=== PATIENT | female | born 1965 | race Caucasian/White ===

== ENCOUNTER → 2018-08-16 10:56 | Outpatient (CLI) | payer OTHER, SELFPAY ==
[2018-08-16 13:08] LABS: Bacteria Urine None Seen; RBC Urine None Seen (0-5/HPF); WBC Urine None Seen (0-5/HPF)
[2018-08-16 13:31] LABS: Appearance Urine UA CLEAR; Bilirubin Urine UA NEGATIVE (NEGATIVE); Color Urine UA YELLOW; Glucose Urine UA NEGATIVE (Normal); Ketones Urine UA NEGATIVE (NEGATIVE); Leukocyte Esterase Urine UA TRACE (NEGATIVE); Nitrite Urine UA Negative (Negative); Occult Blood Urine UA NEGATIVE (Negative); Protein Urine UA NEGATIVE (Negative); Urobilinogen Urine UA 0.2 E.U./dL (0.2)
[2018-08-16 13:33] LABS: Culture Indicated Urine Cult Not Indicated; Urine Comments Microscopic Normal
== END ==
PROVIDERS: PCP Physician Assistant; Visit Provider Nurse Practitioner Family
DX: N39.0 Urinary tract infection, site not specified (principal)
CPT/HCPCS: 81001

== ENCOUNTER → 2021-06-29 14:39 | Outpatient (CLI) | payer OTHER, SELFPAY ==
[2021-06-29 16:36] LABS: COVID19 -Nasal RAPID Negative (Negative)
== END ==
PROVIDERS: PCP Physician Assistant; Visit Provider Nurse Practitioner
DX: J02.9 Acute pharyngitis, unspecified (principal); Z20.822 Contact with and (suspected) exposure to COVID-19
CPT/HCPCS: 87635

== ENCOUNTER → 2021-07-29 16:35 | Outpatient (CLI) | payer OTHER, SELFPAY ==
[2021-07-29 17:39] LABS: COVID19 -Nasal RAPID Negative (Negative)
== END ==
PROVIDERS: PCP Physician Assistant; Visit Provider Physician Assistant
DX: Z20.822 Contact with and (suspected) exposure to COVID-19 (principal)
CPT/HCPCS: 87635

== ENCOUNTER 2025-02-16 16:55 | Emergency (ER) | payer OTHER, SELFPAY ==
[2025-02-16 17:05] VITALS: BP 163/81; PULSE 75; RESP 18; TEMP 36.6; O2SAT 99; BMI 34.3
--- NOTE | 2025-02-16 17:16 | ED.EXTPRO ---
HPI - Extremity Problem <Jocy Gamble PA-C - Last Filed: 02/16/25 19:02> General Chief complaint: Extremity Problem,Nontraumatic Stated complaint: rt leg pain Time Seen by Provider: 02/16/25 17:16 Source: patient Mode of arrival: Ambulatory History of Present Illness HPI Narrative: This is a 59-year-old woman presenting with concern for right calf pain and possible DVT. She states she 1st noticed the pain about a week ago when she was pushing the foot rest portion of a reclining chair down with her legs. She felt a Charley horse type muscular pain she felt in her calf in the back and inside of her calf on the right. She states that this pain seems to be improving over the week but then today she noticed it again shortly before starting to proceed with some outside work. She said today she is noticed the pain is also affecting the back of her knee and up into the back of her thigh a little bit which is new. She thinks it is possible that her calf is more swollen the right than the left but she is unsure. She describes it as an aching type pain. She denies any recent long car rides or periods of immobility, states she is a nonsmoker and has never had a DVT. Denies any other complaints or concerns. Related Data Home Medications Medication Instructions Recorded Confirmed [VITAMIN C] 1,000 mg PO QDAY ##0 12/13/16 09/08/23 [VITAMIN D3] 1,000 iu PO QDAY ##0 12/13/16 09/08/23 acetaminophen 500 mg tablet 500 mg PO Q4HP PRN ##0 12/13/16 09/08/23 (Tylenol Extra Strength) Previous Rx's Medication Instructions Recorded chlorhexidine gluconate 0.12 % 15 ml mucous membrane BID #15 mL 04/29/19 mouthwash fluticasone propionate 50 1 spray intranasal Q12H #16 grams 09/08/23 mcg/actuation nasal spray,suspension (Flonase Allergy Relief) Allergies Allergy/AdvReac Type Severity Reaction Status Date / Time aspirin [ASPIRIN] Allergy Intermediate TINNITIS Verified 09/08/23 13:45 ibuprofen [IBUPROFEN] Allergy Intermediate VOMITING Verified 09/08/23 13:45 tetracycline [TETRACYCLINE] Allergy Mild DIARRHEA Verified 09/08/23 13:45 AND NAUSEA DECONGESTANT Allergy Mild (ANTIHISTAMINE) Uncoded 10/19/23 13:45 FAST HEART RATE Review of Systems <Jocy Gamble PA-C - Last Filed: 02/16/25 19:02> Review of Systems Narrative: See HPI Patient History <Jocy Gamble PA-C - Last Filed: 02/16/25 19:02> Social History Smoking Status: Never smoker Smoking Status: Never smoker Exam <Jocy Gamble PA-C - Last Filed: 02/16/25 19:02> Narrative Exam Narrative: GENERAL: [59] year old patient appears stated age. Well-developed patient, in mild distress. HEAD: Atraumatic. Normocephalic. EYES: Pupils equal round and reactive. Extraocular motions intact. No scleral icterus. No injection or drainage. ENT: Nose without bleeding, purulent drainage. Airway patent. NECK: Trachea midline. Non tender CARDIOVASCULAR: Regular rate and rhythm without murmurs, gallops, or rubs. RESPIRATORY: Clear to auscultation. Breath sounds equal bilaterally. No wheezes, rales, or rhonchi. EXTREMITIES: There is subtle slight enlargement of the right calf medially as compared to the left calf. There is tenderness at the medial right calf, slight tenderness in the posterior mid calf and slight tenderness in the posterior distal thigh. No popliteal fossa tenderness or swelling noted. Range of motion at the ankle is intact with no increased pain. Distal pulses intact. Skin is pink, well perfused, without heat or erythema noted. No other edema or joint tenderness. NEURO: AOx3. SKIN: No rash or erythema of visible areas Initial Vital Signs Initial Vital Signs: Vital Signs Temperature 98 F 02/16/25 17:05 Pulse Rate 75 02/16/25 17:05 Respiratory Rate 18 02/16/25 17:05 Blood Pressure 163/81 H 02/16/25 17:05 Pulse Oximetry 99 02/16/25 17:05 Oxygen Delivery Method Room Air 02/16/25 17:05 <Celena Bergeron DO - Last Filed: 02/17/25 15:37> Initial Vital Signs Initial Vital Signs: Vital Signs Temperature 98 F 02/16/25 17:05 Pulse Rate 75 02/16/25 17:05 Respiratory Rate 18 02/16/25 17:05 Blood Pressure 163/81 H 02/16/25 17:05 Pulse Oximetry 99 02/16/25 17:05 Oxygen Delivery Method Room Air 02/16/25 17:05 Scores <Jocy Gamble PA-C - Last Filed: 02/16/25 19:02> Arti Criteria for DVT Active Cancer (Treatment within 6 months): No Bedridden recently >3 days or major surgery within 4 weeks: No Calf Swelling >3cm compared to other leg: No Collateral (nonvericose) superficial veins present: No Entire leg swollen: No Localized tenderness along the deep vein system: Yes Pitting edema, confined to symtomatic leg: No Paralysis, paresis, or recent plaster immobilization of ext: No Previously documented DVT: No Alternative dx to DVT as likely or more likely: No Arti criteria for DVT: 1 <Celena Bergeron DO - Last Filed: 02/17/25 15:37> Livan' Criteria for DVT Livan' criteria for DVT: 1 Course <Jocy Gamble PA-C - Last Filed: 02/16/25 19:02> Orders Ordered: ED Orders 02/16/25 17:22 US periph venous low extrem rt Stat Vital Signs Vital signs: Vital Signs - 8 hr 02/16/25 17:05 Temperature 98 F Pulse Rate 75 Respiratory Rate 18 Blood Pressure 163/81 H Pulse Oximetry 99 Oxygen Delivery Method Room Air <Celena Bergeron DO - Last Filed: 02/17/25 15:37> Orders Ordered: ED Orders 02/16/25 17:22 US periph venous low extrem rt Stat Vital Signs Vital signs: Vital Signs - 8 hr 02/16/25 17:05 Temperature 98 F Pulse Rate 75 Respiratory Rate 18 Blood Pressure 163/81 H Pulse Oximetry 99 Oxygen Delivery Method Room Air MDM - Extremity (Nontraumatic) <NAIMA Hawk Last Filed: 02/16/25 19:02> Differential Diagnosis Differential diagnosis: Likely deep vein thrombosis of lower extremity and other (Muscle strain, muscle spasm) Imaging Data US - DVT: My Impression: Agree with Radiology interpretation Radiologist's Impression: [address] [address] Ultrasound Report Signed Patient: Mónica Garg MR#: [id number] : 1965 Acct:[id number] Age/Sex: 59 / F Date of Service: 02/16/25 Loc: ED Accession Number: [id number] Procedure: US periph venous low extrem rt Ordering Provider: Jocy Gamble PA-C PROCEDURE: PERIPH VENOUS LOW EXTREM RT INDICATIONS: Calf pain/tenderness 1 wk TECHNIQUE: Real-time imaging, as well as color and pulse Doppler interrogation, were performed of the lower extremity deep veins from the inguinal ligament to the popliteal fossa, with documentation of the visualized calf veins. COMPARISON: None. FINDINGS: The common femoral, femoral, popliteal, and the visualized calf veins are normally compressible, and free of intraluminal thrombus. Color and pulse Doppler demonstrate normal phasic intraluminal flow. There is normal augmentation response to distal compression maneuver. Additional, dedicated ultrasound scanning is performed at the area of clinical concern of the right anterior medial ankle. No focal ultrasound abnormalities are seen within this region. IMPRESSION: No findings of lower extremity deep venous thrombosis. No ultrasound abnormalities can be seen at the site of clinical concern involving the right anterior medial ankle. Dictated by: Rogelio Paiz M.D. on 02/16/2025 at 17:37 Approved by: Rogelio Paiz M.D. on 02/16/2025 at 17:38 [facility] Narrative Medical decision making narrative: This is a 59-year-old woman with no pertinent history presenting with concern for right calf pain and tenderness that she 1st noticed a week ago that returned again/worsened today. Exam is suspicious for a muscle strain however with some posterior calf midline tenderness and 1 risk factor, (obesity) reasonable to obtain an ultrasound to further evaluate for possible DVT. This is obtained today and returned negative. Labs were not obtained. Discussed results with the patient and she is comfortable with the plan of treating as a muscle strain, we discussed rest ice compression elevation, Tylenol, ibuprofen. She is advised to minimize physical activities that cause pain and if it was not improving or if it was worsening seek re-evaluation. Return precautions provided, follow-up plan discussed, all questions answered. Discharge Plan Departure Patient Disposition: Home Clinical Impression: Strain of right calf muscle Activity Restrictions/Additional Instructions: *You have been diagnosed with [calf muscle strain] *What to do: *Please continue to take your regular medications as directed. [ ] New medication prescriptions sent to your pharmacy: [ ] [ ] New medication written as a paper prescription [X ] No new medications given *Please follow up with your primary care provider in 2-3 days, call for an appointment. Let them know you were seen in the Emergency Department and that we ask that you be seen in follow up. We will electronically transmit a record of today's note if your PCP is in our system. You came into the ER today with concern for pain in your calf. An ultrasound was obtained to rule out a DVT (blood clot). This was negative. Your exam is fairly consistent with a muscle strain. As it seems her pain returned when you went back to more intense physical activities today after pre from the pain for most of the week. I recommend rest ice compression and elevation, you may want to consider an Lloyd wrap, Tylenol/acetaminophen and ibuprofen/Advil for pain as needed for the next few days. Gentle stretching as tolerated and you may want to try icing it this evening and see if that helps some with her pain as well. Over the next week you may find it helpful to use topical medications such as Voltaren/diclofenac gel. This is available OTC. If you are finding that your pain is persisting or worsening please make sure you seek re-evaluation. I hope it resolve soon as you feel better. *If you do not have a primary care provider please contact the [facility] Resource line at [phone]. They will ask some questions about your medical history and help get you set up with a doctor in the community. *Return to Emergency Department if you should have any new, worsening or concerning symptoms, such as [fever greater than 101 F, shaking chills, worsening pain, persistent vomiting or other bothersome symptoms] Prescriptions: No Action chlorhexidine gluconate 0.12 % mouthwash 15 ml MM BID Qty: 15 0RF Rx Instructions: rinse mouth for at least 30 secs then spit. fluticasone propionate [Flonase Allergy Relief] 50 mcg/actuation spray,suspension 1 spray intranasal Q12H Qty: 16 0RF Rx Instructions: administer into each nostril [VITAMIN D3] 1,000 iu PO QDAY Qty: 0 [VITAMIN C] 1,000 mg PO QDAY Qty: 0 acetaminophen [Tylenol Extra Strength] 500 MG tablet 500 mg PO Q4HP PRNQty: 0 Referrals: Laila Shirley, MONICA, AGRONOMY SPECIALIST [Primary Care Provider] - Stand Alone Forms: Patient Portal/API/Survey ED Sign-out <Celena Bergeron DO - Last Filed: 02/17/25 15:37> Cosign ED Attending Cosignature Attestation: I was immediately available in the department for consultation.
--- NOTE | 2025-02-16 17:22 | DI.US.S_ITS ---
PROCEDURE: US PERIPH VENOUS LOW EXTREM RT INDICATIONS: Calf pain/tenderness 1 wk TECHNIQUE: Real-time imaging, as well as color and pulse Doppler interrogation, were performed of the lower extremity deep veins from the inguinal ligament to the popliteal fossa, with documentation of the visualized calf veins. COMPARISON: None. FINDINGS: The common femoral, femoral, popliteal, and the visualized calf veins are normally compressible, and free of intraluminal thrombus. Color and pulse Doppler demonstrate normal phasic intraluminal flow. There is normal augmentation response to distal compression maneuver. Additional, dedicated ultrasound scanning is performed at the area of clinical concern of the right anterior medial ankle. No focal ultrasound abnormalities are seen within this region. IMPRESSION: No findings of lower extremity deep venous thrombosis. No ultrasound abnormalities can be seen at the site of clinical concern involving the right anterior medial ankle. Dictated by: oRgelio Paiz M.D. on 02/16/2025 at 17:37 Approved by: Rogelio Paiz M.D. on 02/16/2025 at 17:38
== END 2025-02-16 19:04 | disposition home or self-care (01) ==
PROVIDERS: Emergency Provider Student in an Organized Health Care Education/Training Program; PCP Nurse Practitioner Family
DX: S86.911A Strain of unspecified muscle(s) and tendon(s) at lower leg level, right leg, initial encounter (principal)
CPT/HCPCS: 93971; 99281; 99283

== ENCOUNTER 2025-03-05 08:26 | Emergency (ER) | payer OTHER, SELFPAY ==
[2025-03-05] VITALS (11 sets, daily range): BP systolic 142–181; BP diastolic 65–82; PULSE 63–86; RESP 14–27; TEMP 36.6; O2SAT 98–100; BMI 35.2
--- NOTE | 2025-03-05 08:37 | DI.RAD.S_ITS ---
PROCEDURE: XR CHEST 1V INDICATIONS: chest pain TECHNIQUE: One view of the chest was acquired. COMPARISON: CR, XR CHEST 2 VIEWS, 01/04/2018, 13:53. FINDINGS: Surgical changes and devices: None. Lungs and pleura: Lungs are clear. No pleural effusions or pneumothorax. Mediastinum: Mediastinal contours appear normal. Heart size is normal. Bones and chest wall: No suspicious bony lesions. Overlying soft tissues appear unremarkable. IMPRESSION: No acute pulmonary process. Dictated by: Myriam Madrigal M.D. on 03/05/2025 at 9:02 Approved by: Myriam Madrigal M.D. on 03/05/2025 at 9:03
--- NOTE | 2025-03-05 08:39 | EKG_ITS ---
[address] [address] [address] [address] Test Date: 2025-03-05 Pat Name: Mónica Garg Department: Room: Gender: Female Physician Specialist: LUIZ : 1965 Requested By: Order Number: [id number] Reading MD: Alvin Carter MD Measurements Intervals [place] Rate: 80 P: 63 VA: 158 QRS: -45 QRSD: 82 T: 48 QT: 372 QTc: 429 Interpretive Statements Sinus rhythm with occasional premature ventricular complexes Left anterior fascicular block Electronically Signed On 03-05-2025 15:24:13 PDT by Alvin Carter MD
[2025-03-05 09:20] LABS: Add Manual Diff / Slide Review NO; Basophils Absolute Auto 100 /uL (0-100); Basophils Percent Auto 0.8 % (0-2); Eosinophils Absolute Auto 200 /uL (0-450); Eosinophils Percent Auto 2.3 % (2-4); Hematocrit 42.8 % (36-46); Hemoglobin 14.3 g/dL (12.0-16.0); Lymphocytes Absolute Auto 1400 /uL (1100-4500); Lymphocytes Percent Auto 19.4 % (25-40); Mean Corpuscular HGB Conc 33.3 % (30-36); Mean Corpuscular Hemoglobin 29.5 PG (26-34); Mean Corpuscular Volume 88.5 fL (80-100); Monocytes Absolute Auto 500 /uL (0-900); Neutrophils Absolute Auto 5000 /uL (1500-7000); Neutrophils Percent Auto 70.5 % (50-75); Platelet Count 289 X10^3/uL (150-400); Red Blood Cell Count 4.84 X10^6/uL (4.0-5.2); Red Cell Distribution Width 13.7 % (11.6-14.8)
[2025-03-05 09:28] LABS: Alanine Aminotransferase 23 IU/L (<35); Albumin Globulin Ratio 1.2 (1.0-2.8); Alkaline Phosphatase 68 U/L (38-126); Aspartate Aminotransferase 35 IU/L (14-36); BUN Creatinine Ratio 26.1 (6-22); Blood Urea Nitrogen 29 mg/dL (7-17); Calcium 9.9 mg/dL (8.4-10.2); Carbon Dioxide 23 mmol/L (22-32); Chloride 105 mmol/L (98-107); Creatine Kinase 63 U/L (30-135); Estimated Glomerular Filt Rate 57 mL/min (>60); Globulin 4.1 g/dL (1.7-4.1); Glucose 116 mg/dL (80-110); Lipase 183 U/L (23-300); Magnesium 2.2 mg/dL (1.6-2.3); Potassium 4.5 mmol/L (3.4-5.1); Sodium 141 mmol/L (137-145); Total Protein 9.1 g/dL (6.3-8.2)
[2025-03-05 09:32] LABS: HEMOLYSIS 61 (0-50)
[2025-03-05 09:40] LABS: NT-proBNP (BNP-Adult 18+) 91 pg/mL (<125); Troponin I < 0.012 ng/mL (0.01-0.034)
[2025-03-05 10:22] LABS: Prothrombin Time 11.7 SECONDS (9.4-12.5)
[2025-03-05 10:23] LABS: PTT Partial Thromboplastin Tim 29 SECONDS (25.1-36.5)
--- NOTE | 2025-03-05 11:41 | ED.ARRPALP ---
HPI - Arrhythmia/Palpitations General Chief Complaint: Arrhythmia/Palpitations Stated Complaint: Heart palpitations on and off Time Seen by Provider: 03/05/25 11:34 Source: patient, RN notes reviewed and old records reviewed Mode of arrival: Ambulatory Limitations: no limitations History of Present Illness HPI narrative: 59-year-old female with complaint of having palpitations x3 days. Patient has history of palpitations which he states has been intermittent but has been more frequently this last couple of days. She has had a Holter monitor in the past and was told she had extra beats which were normal. From her description probably PVCs. Patient states at baseline she was quite a bit of anxiety has not ever taken medications. Patient states she was just had palpitations on and off for the last several days. She denies any chest pain or shortness of breath, no fevers or chills no nausea or vomiting no other GI or urinary symptoms no issues with bowel movements or swelling of her extremities. Patient is not on any daily medications. Has had prior hysterectomy and C-sections x3. No tobacco, alcohol or recreational drugs. She notes she was very sensitive to caffeine we will often give her palpitations. She follows with Laila Shirley as her primary care. Related Data Home Medications Medication Instructions Recorded Confirmed [VITAMIN C] 1,000 mg PO QDAY ##0 12/13/16 09/08/23 [VITAMIN D3] 1,000 iu PO QDAY ##0 12/13/16 09/08/23 acetaminophen 500 mg tablet 500 mg PO Q4HP PRN ##0 12/13/16 09/08/23 (Tylenol Extra Strength) Previous Rx's Medication Instructions Recorded chlorhexidine gluconate 0.12 % 15 ml mucous membrane BID #15 mL 04/29/19 mouthwash fluticasone propionate 50 1 spray intranasal Q12H #16 grams 09/08/23 mcg/actuation nasal spray,suspension (Flonase Allergy Relief) Allergies Allergy/AdvReac Type Severity Reaction Status Date / Time aspirin [ASPIRIN] Allergy Intermediate TINNITIS Verified 09/08/23 13:45 ibuprofen [IBUPROFEN] Allergy Intermediate VOMITING Verified 09/08/23 13:45 tetracycline [TETRACYCLINE] Allergy Mild DIARRHEA Verified 09/08/23 13:45 AND NAUSEA DECONGESTANT Allergy Mild (ANTIHISTAMINE) Uncoded 09/08/23 13:45 FAST HEART RATE Review of Systems Review of Systems ROS Unobtainable: All systems reviewed & are unremarkable except as noted in HPI and below Patient History Social History Smoking Status: Never smoker Smoking Status: Never smoker Exam Narrative Exam Narrative: GENERAL: Alert and oriented x three, female in mild distress HEENT: Head normocephalic, atraumatic, EOMI, pupils reactive, face symmetric, moist mucous membranes NECK: Supple, full range of motion CARDIOVASCULAR: Regular rate and rhythm without murmurs, rubs or gallops. No JVD. RESPIRATORY: Breath sounds equal bilaterally, no wheezes rales or rhonchi. No tachypnea or accessory muscle use. ABDOMEN: Soft, nontender. Normoactive bowel sounds all 4 quadrants. No guarding or rebound, rigidity, no mass : No CVA tenderness EXTREMITIES: Normal range of motion, no upper or lower extremity edema. Neurovascularly intact NEUROLOGICAL: Cranial nerves II through XII grossly intact. Moving all extremities SKIN: Warm, dry, no petechiae, no rashes or lesions. Initial Vital Signs Initial Vital Signs: Vital Signs Temperature 97.9 F 03/05/25 08:37 Pulse Rate 63 03/05/25 08:37 Respiratory Rate 18 03/05/25 08:37 Blood Pressure 181/82 H 03/05/25 08:37 Pulse Oximetry 98 03/05/25 08:37 Oxygen Delivery Method Room Air 03/05/25 08:37 Course Orders Ordered: ED Orders 03/05/25 08:37 XR chest 1V Stat EKG-12 Lead Stat 03/05/25 09:07 Complete Blood Count AUTO DIFF Stat Comprehensive Metabolic Panel Stat Lipase Stat Magnesium Stat NT-proBNP (BNP-Adult 18+) Stat PTT Partial Thromboplastin Toño Stat Prothrombin Time INR Stat Troponin & CK Cardiac Panel Stat Vital Signs Vital signs: Vital Signs - 8 hr 03/05/25 12:32 Pulse Rate 86 Respiratory Rate 16 Blood Pressure 158/65 H Pulse Oximetry 98 Oxygen Delivery Method Room Air MDM - Arrhythmia/Palpitations Lab Data 03/05/25 09:07 03/05/25 09:07 Labs: Lab Results 03/05/25 Range/Units 09:07 WBC 7.0 (4.5-11.0) X10^3/uL RBC 4.84 (4.0-5.2) X10^6/uL Hgb 14.3 (12.0-16.0) g/dL Hct 42.8 (36-46) % MCV 88.5 (80-100) fL MCH 29.5 (26-34) PG MCHC 33.3 (30-36) % RDW 13.7 (11.6-14.8) % Plt Count 289 (150-400) X10^3/uL Neut % (Auto) 70.5 (50-75) % Lymph % (Auto) 19.4 L (25-40) % [place] % (Auto) 7.0 (3-14) % Eos % (Auto) 2.3 (2-4) % Baso % (Auto) 0.8 (0-2) % Neut # (Auto) 5000 (4251-5106) /uL Lymph # (Auto) 1400 (6815-5009) /uL [place] # (Auto) 500 (0-900) /uL Eos # (Auto) 200 (0-450) /uL Baso # (Auto) 100 (0-100) /uL PT 11.7 (9.4-12.5) SECONDS INR 1.0 (0.9-1.3) APTT 29 (25.1-36.5) SECONDS Sodium 141 (137-145) mmol/L Potassium 4.5 (3.4-5.1) mmol/L Chloride 105 (98-107) mmol/L Carbon Dioxide 23 (22-32) mmol/L BUN 29 H (7-17) mg/dL Creatinine 1.11 H (0.52-1.04) mg/dL Estimated GFR 57 L (>60) mL/min BUN/Creatinine Ratio 26.1 H (6-22) Glucose 116 H (80-110) mg/dL Calcium 9.9 (8.4-10.2) mg/dL Magnesium 2.2 (1.6-2.3) mg/dL Total Bilirubin 1.0 (0.2-1.3) mg/dL AST 35 (14-36) IU/L ALT 23 (<35) IU/L Alkaline Phosphatase 68 (38-126) U/L Total Creatine Kinase 63 (30-135) U/L Troponin I < 0.012 (0.01-0.034) ng/mL NT-Pro-B Natriuret Pep 91 (<125) pg/mL Total Protein 9.1 H (6.3-8.2) g/dL Albumin 5.0 (3.5-5.0) g/dL Globulin 4.1 (1.7-4.1) g/dL Albumin/Globulin Ratio 1.2 (1.0-2.8) Lipase 183 (23-300) U/L ECG Data Attestation: I personally reviewed and interpreted this ECG as follows: Prior ECG tracings: available for review Interpretation: Sinus rhythm occasional PVCs left anterior fascicular block rate 80, TX 138, QRS 82 QTC of 429. Patient was prior from 01/17/2018 which appears similar. Was sinus rhythm. MDM Narrative Medical decision making narrative: Sinus rhythm occasional PVC Labs show normal white count hemoglobin and platelets. Coags are negative, creatinine is 1.11, BUN 29 with 0.9 in 2018 otherwise appropriate electrolytes glucose is 116, LFTs are otherwise normal troponins less than 0.012, BNP is 91. total protein is 9.1. Chest x-ray shows no acute change Patient has had no may either rhythm changes with telemetry. Patient describes what sounds consistent with PVC she states she was not really having any currently. She notes she was had them in the past has had a Holter monitor in the past. Feels appropriate for discharge home discussed if persistent but mild to follow up for repeat Holter or ZIO patch. If any other new or concerning changes patient is to return. We did discuss her creatinine is slightly elevated and to hydrate is this maybe contributing a little bit as well. Discharge Plan Departure Patient Disposition: Home Clinical Impression: Palpitations Instructions: DI for Palpitations Activity Restrictions/Additional Instructions: Follow up for rechecked, he had did have the occasional PVC or extra beat on your EKG but no other arrhythmias today. If you are having persistent symptoms they may order a Holter monitor or ZIO patch for home. Would recommend making sure you are well hydrated. Please return for new or worsening symptoms, new chest pain or shortness of breath, lightheadedness or passing out, persistently elevated or fast heart rate, new swelling of your extremities or other new or concerning changes. Prescriptions: No Action chlorhexidine gluconate 0.12 % mouthwash 15 ml MM BID Qty: 15 0RF Rx Instructions: rinse mouth for at least 30 secs then spit. fluticasone propionate [Flonase Allergy Relief] 50 mcg/actuation spray,suspension 1 spray intranasal Q12H Qty: 16 0RF Rx Instructions: administer into each nostril [VITAMIN D3] 1,000 iu PO QDAY Qty: 0 [VITAMIN C] 1,000 mg PO QDAY Qty: 0 acetaminophen [Tylenol Extra Strength] 500 MG tablet 500 mg PO Q4HP PRNQty: 0 Referrals: Laila Shirley DNP, [employer] [Primary Care Provider] - Stand Alone Forms: Patient Portal/API/Survey, Work Release Note
== END 2025-03-05 12:34 | disposition home or self-care (01) ==
PROVIDERS: Emergency Provider Emergency Medicine; PCP Nurse Practitioner Family
DX: R00.2 Palpitations (principal); F41.9 Anxiety disorder, unspecified; R07.9 Chest pain, unspecified
CPT/HCPCS: 36415; 71045; 80053; 82550; 83690; 83735; 83880; 84484; 85025; 85610; 85730; 93005; 93010; 99283; 99284